=== PATIENT | male | born 1980 | race African-American/Black ===

== ENCOUNTER 2017-08-23 00:09 | Emergency (ER) | payer SELFPAY ==
[~2017-08-23] VITALS: Ht 172.7 cm; Wt 75.0 kg
[~2017-08-23 00:09] MED LIST: DIPH50TA PO; PRED20 PO
[2017-08-23 00:10] VITALS: BP 124/85; PULSE 74; RESP 16; TEMP 98.6; O2SAT 99
--- NOTE | 2017-08-23 02:38 | PD ---
HPI Chief Complaint: Oral / Dental Pain or Problem Time Seen by Provider: 01:36 Travel History International Travel<30 days: No Contact w/Intl Traveler<30days: No Traveled to known affect area: No History of Present Illness HPI SHEENT is a 37-year-old male whose been dealing with a fractured right lower molar went to a dentist apparently was on antibiotics and now he says it is coming back. He had insurance issues was not able to have an extraction he also has a reactive lymph node swelling looks like a parotid or submental lymph node that is edematous and swollen and tense he said is not responding to the Motrin and Tylenol it is been taking in the antibiotic that they prescribed and has run out PFSH Past Medical History Diminished Hearing: No Immunizations Current: Yes Tetanus Vaccination: < 5 Years Influenza Vaccination: No Social History Alcohol Use: No Tobacco Use: No Substance Use: Yes (MARIJUANA OCC.) Allergies-Medications (Allergen,Severity, Reaction): Coded Allergies: codeine (Unverified Allergy, Severe, 08/23/17) shellfish derived (Unverified Allergy, Severe, 08/23/17) Reported Meds & Prescriptions Reported Meds & Active Scripts Active Tramadol (Tramadol HCl) 50 Mg Tab 50 Mg PO Q6H PRN Ibuprofen 600 Mg Tab 600 Mg PO Q6H PRN Clindamycin (Clindamycin HCl) 300 Mg Cap 300 Mg PO TID Review of Systems Except as stated in HPI: all other systems reviewed are Neg HENT: Positive: Neck Pain (toothache and swollen lymph node) Physical Exam Narrative GENERAL: obvious facial swelling to right parotid area SKIN: Warm and dry. HEAD: Atraumatic. Normocephalic. EYES: Pupils equal and round. No scleral icterus. No injection or drainage. ENT: No nasal bleeding or discharge. Mucous membranes pink and moist. right lower molar #2 fractured no apical abscess NECK: Trachea midline. No JVD. Right parotid tense mild tender, firm not fluctulant . appears reactive not infected CARDIOVASCULAR: Regular rate and rhythm. RESPIRATORY: No accessory muscle use. Clear to auscultation. Breath sounds equal bilaterally. GASTROINTESTINAL: Abdomen soft, non-tender, nondistended. Hepatic and splenic margins not palpable. MUSCULOSKELETAL: Extremities without clubbing, cyanosis, or edema. No obvious deformities. NEUROLOGICAL: Awake and alert. No obvious cranial nerve deficits. Motor grossly within normal limits. Five out of 5 muscle strength in the arms and legs. Normal speech. PSYCHIATRIC: Appropriate mood and affect; insight and judgment normal. Data Data Last Documented VS Orders Orders Ibuprofen (Motrin) (08/23/17 02:45) Tramadol (Ultram) (08/23/17 02:45) Clindamycin (Cleocin) (08/23/17 02:45) Ed Discharge Order (08/23/17 02:41) MDM Medical Decision Making Medical Screen Exam Complete: Yes Emergency Medical Condition: Yes Differential Diagnosis parotiditis vs inpacted tooth , infected gum apical abscess Narrative Course Patient is given clindamycin and tramadol and follow-up as an outpatient told to suck lemon drops this is a parotid stone causing obstruction of the parotid gland swelling as opposed to secondary to an infection it seems more like parotiditis secondary to a caliculus Diagnosis Primary Impression: Lymphadenopathy Additional Impression: Broken tooth Scripts Tramadol (Tramadol) 50 Mg Tab 50 MG PO Q6H Y for PAIN, #6 TAB 0 Refills Prov: Jose Antonio Pinedo MD 08/23/17 Ibuprofen (Ibuprofen) 600 Mg Tab 600 MG PO Q6H Y for Pain/Inflammation, #40 TAB 0 Refills Prov: Jose Antonio Pinedo MD 08/23/17 Clindamycin (Clindamycin) 300 Mg Cap 300 MG PO TID for Infection, #30 CAP 0 Refills Prov: Jose Antonio Pinedo MD 08/23/17 Disposition: 01 DISCHARGE HOME Condition: Good Jose Antonio iPnedo MD Aug 23, 2017 02:38
[2017-08-23] MEDS ORDERED: IBUP-232 PO (02:40)
[2017-08-23] MEDS ORDERED: CLIN300C5 PO (02:40)
[2017-08-23] MEDS ORDERED: TRAM50TA PO (02:41)
[2017-08-23] MEDS ORDERED: traMADol HCL 50 MG TAB PO ONE (02:45)
[2017-08-23] MEDS ORDERED: IBUPROFEN 600 MG TAB PO ONE (02:45)
[2017-08-23] MEDS ORDERED: CLINDAMYCIN 150 MG CAP PO ONE (02:45)
[2017-09-03] MEDS ORDERED: BACT800T5 PO (23:09)
[2017-09-03] MEDS ORDERED: CEPH-460 PO (23:09)
== END 2017-08-23 02:56 | disposition home or self-care (01) ==
LOC: NEPC 00:09
DX: R59.1 Generalized enlarged lymph nodes (principal); S02.5XXA Fracture of tooth (traumatic), initial encounter for closed fracture; X58.XXXA Exposure to other specified factors, initial encounter
CPT/HCPCS: 99281

== ENCOUNTER 2017-09-03 20:07 | Emergency (ER) | payer SELFPAY ==
[2017-09-03] MEDS: CEPHALEXIN MONOHYDRATE 500 MG CAP PO (23:26)
[2017-09-03] MEDS: SULFAMETHOXAZOLE-TRIMETHOPRIM DS 800-160 MG TAB PO (23:26)
== END 2017-09-03 23:36 | disposition home or self-care (01) ==
LOC: NEPK 20:07
DX: L02.01 Cutaneous abscess of face (principal); B96.3 Hemophilus influenzae [H. influenzae] as the cause of diseases classified elsewhere
CPT/HCPCS: 10061; 87070; 87077; 87184; 87205; 99284-25

== ENCOUNTER 2017-09-06 13:02 | Emergency (ER) | payer SELFPAY ==
[~2017-09-06 13:02] MED LIST changes: +BACT800T5 PO; +CEPH-460 PO; +CLIN300C5 PO; -DIPH50TA PO; +IBUP-232 PO; -PRED20 PO; +TRAM50TA PO
[2017-09-06 13:04] VITALS: BP 117/68; PULSE 73; RESP 12; TEMP 98.7; O2SAT 97
[2017-09-06 15:00] VITALS: BP 127/73; PULSE 70; RESP 14; O2SAT 98
--- NOTE | 2017-09-06 15:12 | PD ---
HPI Chief Complaint: Wound/Suture/Staple Re-Check Time Seen by Provider: 14:58 Travel History International Travel<30 days: No Contact w/Intl Traveler<30days: No Traveled to known affect area: No History of Present Illness HPI The patient is a 37-year-old Samantha male presents to emergency department for reevaluation of an abscess to the right aspect of the face over the angle of the mandible. The patient was seen in the emergency department 2 days ago and had an incision and drainage to the affected area. The patient was discharged on Bactrim and Keflex, however, did not get his prescriptions filled. He states the area was draining, has now cleared. He does note the swelling has significantly improved. He denies any fever, chills, or sweats. He denies any history of AML compromising diseases such as diabetes, HIV, or autoimmune disorders. He denies any intraoral lesions. Symptoms are mild, alleviated after incision and drainage. PFSH Past Medical History Diminished Hearing: No Immunizations Current: Yes Social History Alcohol Use: No Tobacco Use: No Substance Use: Yes (MARIJUANA OCC.) Allergies-Medications (Allergen,Severity, Reaction): Coded Allergies: codeine (Unverified Allergy, Severe, 09/06/17) shellfish derived (Unverified Allergy, Severe, 09/06/17) Reported Meds & Prescriptions Reported Meds & Active Scripts Active Keflex (Cephalexin) 500 Mg Cap 500 Mg PO Q12H Bactrim DS (Sulfamethoxazole-Trimethoprim) 800-160 Mg Tab 1 Tab PO BID Review of Systems General / Constitutional: No: Fever HENT: Positive: Other (as noted in the history of present illness) Skin: Positive Other (as noted in the history of present illness) Endocrine: No: Other (denies any history diabetes) Hematologic/Lymphatic: No: Other (denies any history HIV) Physical Exam Narrative GENERAL: Awake, alert, very pleasant 37 show male who appears his stated age and is in no acute respiratory distress. SKIN: Focused skin assessment warm/dry. Open slightly swollen area on the right mandibular area near the angle. No significant underlying fluctuance. No drainage noted. HEAD: Atraumatic. Normocephalic. EYES: Pupils equal and round. No scleral icterus. No injection or drainage. ENT: No nasal bleeding or discharge. Mucous membranes pink and moist. No visible intraoral lesions on the right aspect of the mouth. NECK: Trachea midline. No JVD. MUSCULOSKELETAL: No obvious deformities. No clubbing. No cyanosis. No edema. NEUROLOGICAL: Awake and alert. No obvious cranial nerve deficits. Motor grossly within normal limits. Normal speech. PSYCHIATRIC: Appropriate mood and affect; insight and judgment normal. Data Data Last Documented VS Vital Signs Date Time Temp Pulse Resp B/P (MAP) Pulse Ox O2 Delivery O2 Flow Rate FiO2 09/06/17 15:00 73 18 09/06/17 15:00 127/73 (91) 98 Room Air 09/06/17 13:04 98.7 MDM Medical Decision Making Medical Screen Exam Complete: Yes Emergency Medical Condition: Yes Medical Record Reviewed: Yes Differential Diagnosis Differential diagnosis includes reevaluation of abscess, wound recheck, cellulitis, impetigo, furuncle, carbuncle. Narrative Course I reviewed the patient's EMR, and it appears the patient was growing parainfluenza Haemophilus from the wound, there was no sensitivities noted. The patient is advised to take his antibiotics. Apply warm compresses to the area. Return if symptoms worsen or progress. Diagnosis Primary Impression: Encounter for recheck of abscess following incision and drainage Patient Instructions: General Instructions Additional Instructions: Take the antibiotics as previously directed. Apply warm compresses to the affected area. Follow-up with a primary physician. Return if symptoms worsen or progress. Med/Other Pt SpecificInfo: No Change to Meds Disposition: 01 DISCHARGE HOME Condition: Stable Jv Chavarria MD Sep 06, 2017 15:12
[2017-09-06] MEDS ORDERED: BACT800T5 PO (15:34)
== END 2017-09-06 15:42 | disposition home or self-care (01) ==
LOC: NEPD 13:02
DX: Z51.89 Encounter for other specified aftercare (principal); L02.01 Cutaneous abscess of face; Z88.5 Allergy status to narcotic agent
CPT/HCPCS: 99281